=== PATIENT | female | born 1965 | race Caucasian/White ===

== ENCOUNTER → 2016-03-02 | Outpatient (CLI) | payer BC ==
[~2016-03-02] MED LIST: FERR1TAB23 PO; IBUP-103 PO; IRON PO; LEVO100T PO; LEVO88TA PO; MTR600X PO; OXYC-57 PO; SENNTAB23 PO
== END | disposition home or self-care (01) ==
LOC: C.PAPS 09:41
PROVIDERS: ATTEND Obstetrics & Gynecology
DX: Z01.419 Encounter for gynecological examination (general) (routine) without abnormal findings (principal)

== ENCOUNTER → 2016-03-02 | Outpatient (CLI) | payer BC | END | disposition home or self-care (01) | LOC: C.PATHSPEC 17:35 | PROVIDERS: ATTEND Obstetrics & Gynecology | DX: N94.6 Dysmenorrhea, unspecified (principal) ==

== ENCOUNTER → 2016-04-01 | Outpatient (CLI) | payer BC ==
[~2016-04-01] MED LIST changes: -IBUP-103 PO; -IRON PO; -LEVO88TA PO
[2016-04-01 16:37] LABS: BASO % 0.7 %; BASO ABS # 0.06 K/uL (0-0.2); COMPLETE YES; HEMATOCRIT 37.5 % (37-47); IG% 0.2 %; LYMPH % 26.3 %; LYMPH ABS # 2.11 K/uL (1.2-3.4); MEAN CORPUSCULAR HEMOGLOBIN 28.6 pg (25-34); MEAN CORPUSCULAR HGB CONC 33.6 g/dl (32-36); MONO % 7.9 %; NEUT % 60.9 %; PLATELET COUNT 279 K/uL (130-400); RED BLOOD COUNT 4.41 M/uL (4.2-5.4); WHITE BLOOD COUNT 8.01 K/uL (4.8-10.8)
[2016-04-01 17:13] LABS: BLOOD UREA NITROGEN 9 mg/dl (7-18); BUN/CREATININE RATIO 11.6 (10-20); CALCIUM 9.1 mg/dl (8.5-10.1); CARBON DIOXIDE 25 mmol/L (21-32); CHLORIDE 108 mmol/L (98-107); CREATININE 0.81 mg/dl (0.60-1.20); GLUCOSE 77 mg/dl (70-99); POTASSIUM 4.2 mmol/L (3.5-5.1); SODIUM 141 mmol/L (136-145)
== END | disposition home or self-care (01) ==
LOC: C.LAB 15:14
PROVIDERS: ATTEND Obstetrics & Gynecology
DX: Z01.818 Encounter for other preprocedural examination (principal)

== ENCOUNTER 2016-04-11 08:07 | Observation (INO) | payer BC ==
[2016-03-30 14:00] VITALS: BMI 28.0
[~2016-04-11] VITALS: Ht 154.9 cm; Wt 67.0 kg
[~2016-04-11 08:07] MED LIST changes: +CEFAZOLIN 2000 MG/60 ML D5W 50 ML IV SCH; +LACTATED RINGER'S 1000ML 1,000 ML IV SCH; -LEVO100T PO; -MTR600X PO; -OXYC-57 PO; -SENNTAB23 PO
[2016-04-11 08:38] VITALS: BP 139/80; PULSE 55; TEMP 37.1; O2SAT 99; Ht 154.9 cm; Wt 67.0 kg
--- NOTE | 2016-04-11 09:42 | History & Physical Bridge Note ---
H&P Re-Evaluation Bridge Note: I have examined the patient, reviewed the History & Physical and in the interval since the performance of the History & Physical I have noted the following changes of clinical significance: No changes noted
[2016-04-11] MEDS ORDERED: BUPIVACAINE 0.5 % 5 MG/1 ML MPF 30ML VIAL ONE (09:44)
[2016-04-11] MEDS ORDERED: METHYLENE BLUE 0.5% 10 ML VIAL ONE (09:44)
[2016-04-11] MEDS ORDERED: MIDAZOLAM HCL 1 MG/ML 2ML VIAL ONE (09:45)
[2016-04-11] MEDS ORDERED: FENTANYL CITRATE INJ 50 MCG/1 ML 2 ML VIAL ONE (09:45)
[2016-04-11] MEDS ORDERED: GLYCOPYRROLATE INJ 0.2 MG/ML VIAL ONE (11:07)
[2016-04-11] MEDS ORDERED: ROCURONIUM BROMIDE 10 MG/ML 5 ML VIAL ONE ×2 (11:07→11:34)
[2016-04-11] MEDS ORDERED: NEOSTIGMINE METHYLSULFATE 5 MG/5 ML SYR ONE (11:07)
[2016-04-11] MEDS ORDERED: KETOROLAC TROMETHAMINE 30 MG/ML VIAL ONE (11:07)
[2016-04-11] MEDS ORDERED: PROPOFOL IV EMULSION 10 MG/ML 20 ML VIAL IV ONE (11:07)
[2016-04-11] MEDS ORDERED: LIDOCAINE HCL 2% 2 ML VIAL (20MG/ML) ONE (11:07)
[2016-04-11] MEDS ORDERED: LARYING-O-JET KIT (LTA) EXT ONE ×2 (11:07)
[2016-04-11] MEDS ORDERED: DEXAMETHASONE SOD INJ 4 MG/ML VIAL ONE (11:07)
[2016-04-11] MEDS ORDERED: ONDANSETRON INJ 2 MG/ML 2 ML VIAL ONE (11:07)
[2016-04-11] MEDS ORDERED: TISSEEL FIBRIN SEALANT 4ML TOP ONE (12:03)
[2016-04-11] MEDS ORDERED: LACTATED RINGER'S 1000ML 1,000 ML IV SCH (12:11)
--- NOTE | 2016-04-11 12:14 | [facility] Post Operative Brief Note ---
Immediate Operative Summary Operative Date Apr 11, 2016. Pre-Operative Diagnosis Dysmenorrhea, Menorrhagia, and Anemia Post-Operative Diagnosis Same as preop Procedure(s) Performed Total Laparoscopic Hysterectomy Bilateral Salpingectomy Robot Assist , Cystoscopy Surgeon Dr. Yanes Area Field Person Surgeon(s) Dr. Bergeron Estimated Blood Loss 20 ml Findings adhesions Specimens A. Cervix, Uterus, and Bilateral Fallopian Tubes Drains Abdi Anesthesia General Complication(s) None Disposition Recovery Room / PACU
[2016-04-11] MEDS ORDERED: BISACODYL 10 MG SUPP PR PRN (12:15)
[2016-04-11] MEDS ORDERED: IBUPROFEN 600 MG TAB PO PRN (12:15)
[2016-04-11] MEDS ORDERED: OXYCODONE/ACETAMINOPHEN 5-325 TAB PO PRN ×2 (12:15)
[2016-04-11] MEDS ORDERED: ZOLPIDEM TARTRATE 5 MG TAB PO PRN (12:15)
[2016-04-11] MEDS ORDERED: MAGNESIUM HYDROXIDE SUSP 30 ML UDC PO PRN (12:15)
[2016-04-11] MEDS ORDERED: MEPERIDINE HCL 50 MG/ML CARP IV PRN (12:15)
[2016-04-11] MEDS ORDERED: ONDANSETRON INJ 2 MG/ML 2 ML VIAL IV PRN ×2 (12:15→13:30)
[2016-04-11] MEDS ORDERED: ACETAMINOPHEN 325 MG TAB PO PRN (12:15)
[2016-04-11] MEDS ORDERED: MEPERIDINE HCL 75 MG/ML CARP IV PRN (12:15)
[2016-04-11] MEDS ORDERED: KETOROLAC TROMETHAMINE 30 MG/ML VIAL IV. PRN (12:15)
[2016-04-11] MEDS ORDERED: PROMETHAZINE HCL INJ 25 MG in SODIUM CHLORIDE 0.9% 50ML 50 ML IV PRN (12:15)
[2016-04-11] MEDS ORDERED: PROMETHAZINE HCL INJ 12.5 MG in SODIUM CHLORIDE 0.9% 50ML 50 ML IV PRN (12:15)
[2016-04-11] MEDS ORDERED: SIMETHICONE 80 MG CHEW PO PRN (12:15)
--- NOTE | 2016-04-11 12:15 | Discharge Instructions ---
Discharge Instructions Admission Reason for Admission: Dysmenorrhea, Menorrhagia Discharge Discharge Diagnosis / Problem: menorrhagia Discharge Goals Goal(s): Routine recovery after surgery Activity Recommendations Activity Limitations: per Instructions/Follow-up section . Instructions / Follow-Up Instructions / Follow-Up POST OPERATIVE: BOWEL FUNCTION/MEDICATIONS: 1. Constipation pain and discomfort are the most common complaints 5-7 days after surgery. Points 2-6 address the things that can help. 2. Chewing gum can help stimulate the gut and help improve digestion and motility. 3. Milk of Magnesia 1-2 times per day until return of bowel function. 4. Colace is a stool softener that helps. Taking this 2-3 times per day until bowel function returns to normal is highly recommended. 5. Dulcolax is a laxative that may be used if several days have passed without a bowel movement. Alternatively Miralax may be used daily instead. 6. Drink plenty of fluids as this will also reduce constipation. 7. Narcotic pain medications will be prescribed by your physician. They are safe to use and we encourage you to use them. If you are not allergic, ibuprofen will also be prescribed. Many patients will be able to transition off of the narcotic medications to ibuprofen by postoperative day 3. ACTIVITY RECOMMENDATIONS: 1. Get plenty of rest and listen to your body. If you are tired, take a nap. 2. You may shower, but do not take a tub bath until you see your doctor at the 2 week post operative visit. 3. Absolutely NO intercourse and nothing in the vagina until you are examined by your doctor at the 6 week visit. At that visit it will be determined when such activities can be resumed. This can range from 6-12 weeks after your surgery depending on healing time. 4. The main physical activity in the first week should be walking. By the second week you can slowly increase activity. There are no limits on walking up and down stairs. 5. Do not lift more than 5-10 lbs for 4 weeks. Remember the "one-handed rule", i.e. if you can lift something with only one hand it's likely okay. 6. Minimize car icer like vacuuming and exercising for 4 weeks. "Overdoing it" can lead to incisions not healing, pain and vaginal bleeding , so again, listen to your body. 7. Driving can be resumed when you feel able. Do not drive within 24 hours of taking a narcotic medication. EXPECTATIONS: 1. Vaginal spotting, bleeding and discharge are common after surgery. There may even be an odor to the discharge which is often related to sutures used in the vagina. If you experience heavy vaginal bleeding, call the office number day or night [phone]. 2. Bladder discomfort is common after surgery from the catheter. This usually resolves in 1-2 weeks. 3. By the end of the 3rd or 4th week you should be feeling much better. It may take up to 6 weeks for your energy levels to return to normal. 4. Narcotic medications have side effects such as: dizziness, headache, nausea and/or vomiting. If you suspect your pain medication is causing problems, call our office and we may be able to prescribe an alternate medication. 5. The skin incisions are often covered with a liquid bandage. This will gradually peel off over time. CALL THE OFFICE IF YOU HAVE ANY OF THE FOLLOWIN. Temperature of 101 degrees or higher. 2. Severe abdominal or pelvic pain not relieved by pain medication. 3. Persistent nausea or vomiting. 4. Increased pain with urination or difficulty urinating. 5. Bright red bleeding that soaks more than 1 pad per hour. CONTACT PHONE NUMBERS: Main Office: [phone] Surgical Nurse: [phone] extension [phone] Avoid all tobacco products. If you need help to stop smoking, call [place]'s FREE QUITLINE at . This is a free call. Current Hospital Diet Patient's current hospital diet: Discharge Diet Recommended Diet: Regular Diet Procedures Procedures Performed: Total Laparoscopic Hysterectomy Bilateral Salpingectomy Robot Assist , Cystoscopy Pending Studies Studies pending at discharge: no Medical Emergencies . Who to Call and When: Medical Emergencies: If at any time you feel your situation is an emergency, please call 911 immediately. . Non-Emergent Contact Non-Emergency issues call your: Primary Care Provider . . "Provider Documentation" section prepared by Juan Yanes. VTE Core Measure Inpt VTE Proph given/why not?: Maye Martinez, SCD's
[2016-04-11] MEDS ORDERED: OXYC-57 PO (12:16)
[2016-04-11] MEDS ORDERED: MTR600X PO (12:16)
--- NOTE | 2016-04-11 12:59 | OPERATIVE REPORT ---
DATE OF OPERATION: 04/11/2016 PREOPERATIVE DIAGNOSIS: Dysmenorrhea, menorrhagia anemia. POSTOPERATIVE DIAGNOSIS: Same. PROCEDURE: Total laparoscopic hysterectomy, bilateral salpingectomy, lysis of adhesions. SURGEON: Dr. Yanes. WRAPPER AND PRESERVER: Dr. Bergeron. ESTIMATED BLOOD LOSS: 20 mL. FINDINGS: Adhesions of the anterior abdominal wall. SPECIMENS: Cervix, uterus, bilateral fallopian tubes. DRAINS: Abdi catheter. ANESTHETIC: General. COMPLICATIONS: None. DISPOSITION: Recovery room. Minnie was given a general anesthetic, prepped and draped in dorsal lithotomy position in [facility]. IV antibiotics given and time-out performed. Abdi catheter placed into her bladder and VCare sewn into her cervix in the usual fashion. Gloves changed and a supraumbilical incision made with scalpel. Using direct Ryan technique entry, we made entry into the peritoneal cavity without difficulty. Blunt-tipped Ryan trocar with balloon was then inflated and then CO2 gas to insufflate the abdomen. FINDINGS: Upper abdomen normal, no sign of visceral organ injury. Deep Trendelenburg position obtained. There was an anterior abdominal adhesion likely related to a prior section. This was omentum only. Otherwise adnexa appeared within normal limits, no obvious evidence of endometriosis and no other findings seen. Ureters followed a normal course. Two robotic ports, 1 on the left, 1 on the right placed under direct visualization, and a left upper quadrant 11 mm bladeless accessory port. Robot was then docked. Arm #1 was the monopolar sindhu, arm #2 was the bipolar [place]. Using the uterine manipulator, I identified the fallopian tubes. First these were removed through the accessory port after having had their blood supply removed and were cut with monopolar sindhu. I identified the ureter on both the left and right side and followed a normal course. I was able to coagulate beyond distal to the ovary, the uteroovarian vessels, and then cut these with monopolar sinduh, same process with the round ligament. We then skeletonized the uterine vessel on the left side and sharply dissected away the bladder flap without difficulty uterine artery and vein. Then identified these were well away from the left ureter, so these were then coagulated with bipolar [place] and cut with the monopolar sindhu. The exact same process was then followed on the right side. Once the bladder flap was fully sharply dissected away, we then made an anterior colpotomy with the monopolar sindhu. This was then continued to separate the cervix from the vagina staying medial to out uterine vessel ligations. At this stage, we then were able to pull the cervix and uterus into the vagina and then removed the specimen. A sponge in a glove was then placed in the vagina to maintain pneumoperitoneum. Instrument exchange jaspreet needle train driver for arm #1, bipolar was removed and a Cobra grasper place. We then used a 12 inch 2-0, 90-day V-Loc suture. This was passed through the accessory port. We closed the cuff, taking excellent, at least full 1 cm thickness bites of the vaginal mucosa going from left to right, back right to left. Suture was then cut so there was no tail and needle removed through the accessory port. The cuff seemed hemostatic after generous irrigation and suction, we then applied Tisseel 4 mL to the area for hemostasis. Robotic instruments removed, ports removed, gas allowed to escape. Incisions injected with 0.5% Marcaine. The fascia closed with 0 Vicryl in the umbilical port, several [id number] sutures and deep subcutaneous fat. Same process with the left upper quadrant incision, 4-0 subcuticular Monocryl closures on the incisions. Abdi catheter had been removed and cystoscopy performed. Good strong jets of blue urine coming through both left and right ureter openings. No sign of sutures in the bladder and no damage to the bladder. Cystoscope removed and a new Abdi catheter placed. The sponge had been removed already from the vagina. Sponge and instrument counts correct. The patient sent to recovery room in stable condition. I attest to the content of the Intraoperative Record and any orders documented therein. Any exceptio ns are noted below.
[2016-04-11] MEDS ORDERED: HYDROmorphone INJ 1 MG/ML SYR ONE (13:13)
[2016-04-11] MEDS ORDERED: HYDROmorphone INJ 2 MG/ML SYR/VIAL IV PRN (13:30)
[2016-04-11] MEDS ORDERED: PHENYLEPHRINE 100MCG/ML 5ML SYR IV PRN (13:30)
[2016-04-11] MEDS ORDERED: EpHEDrine SULFATE INJ 50 MG/ML AMP IV PRN (13:30)
[2016-04-11] MEDS ORDERED: ATROPINE SULFATE 0.1 MG/ML 5ML SYR IV PRN (13:30)
--- NOTE | 2016-04-11 13:33 | Anesthesiology Progress Note ---
Anesthesia Post Op Note Date & Time Apr 11, 2016 at 13:34 Vital Signs Pain Intensity: 6 Vital Signs Past 12 Hours Date Time Temp Pulse Resp B/P Pulse Ox O2 Delivery O2 Flow Rate FiO2 04/11/16 13:25 51 10 128/73 97 Room Air 04/11/16 13:15 47 10 135/75 98 Room Air 04/11/16 13:05 48 10 131/77 98 Room Air 04/11/16 12:55 53 16 133/78 100 Room Air 04/11/16 12:45 54 16 129/93 100 Mask 10 04/11/16 12:35 60 14 122/73 100 Mask 10 04/11/16 12:29 37.0 71 12 123/79 100 Mask 10 04/11/16 08:38 37.1 55 18 139/80 99 Room Air Notes Mental Status: alert / awake / arousable, participated in evaluation Pt Amnestic to Procedure: Yes Nausea / Vomiting: adequately controlled Pain: adequately controlled Airway Patency, RR, SpO2: stable & adequate BP & HR: stable & adequate Hydration State: stable & adequate Anesthetic Complications: no major complications apparent
[2016-04-11 13:55] VITALS: BP 134/77; PULSE 55; TEMP 36.7; O2SAT 96
[2016-04-11] MEDS ORDERED: IV FLUIDS COMPLETED PRN (14:00)
[2016-04-11 14:25] VITALS: BP 132/78; PULSE 53; TEMP 36.4; O2SAT 97
[2016-04-11 14:55] VITALS: BP 134/84; PULSE 55; TEMP 36.4; O2SAT 98
[2016-04-11 15:55] VITALS: BP 135/79; PULSE 63; TEMP 36.4; O2SAT 98
[2016-04-11] MEDS ORDERED: DOCUSATE SODIUM 100 MG CAP PO SCH (21:00)
--- NOTE | 2016-04-15 07:17 | DISCHARGE SUMMARY ---
Minnie had a total laparoscopic hysterectomy on 04/11/2016. She only spent a few hours in the hospital recovering. Her discharge is as follows: She soon after surgery began ambulating, voided well, had minimal bleeding and minimal pain. Pain was well controlled on oral pain medication. She had no extremity pain. PHYSICAL EXAM: Her vital signs were stable, she was afebrile. ASSESSMENT AND PLAN: Meets discharge criteria per nursing and was discharged home on the same day of surgery, 04/11/2016.
[2016-04-19] MEDS ORDERED: LEVO100T PO (14:00)
== END 2016-04-11 17:30 | disposition home or self-care (01) ==
LOC: ENRESERVTM → ENRESERVDT → C.ACU 08:07 → C.MS4N 12:13
PROVIDERS: ADMIT Obstetrics & Gynecology; ATTEND Obstetrics & Gynecology
DX: N94.6 Dysmenorrhea, unspecified (principal); N92.0 Excessive and frequent menstruation with regular cycle; D64.9 Anemia, unspecified; E03.9 Hypothyroidism, unspecified
CPT/HCPCS: 58571; S2900

== ENCOUNTER 2016-04-19 17:38 | Emergency (ER) | payer BC ==
[~2016-04-19] VITALS: Ht 160 cm; Wt 65.7 kg
[~2016-04-19 17:38] MED LIST changes: -CEFAZOLIN 2000 MG/60 ML D5W 50 ML IV SCH; -FERR1TAB23 PO; -LACTATED RINGER'S 1000ML 1,000 ML IV SCH; +LEVO100T PO; +MTR600X PO; +OXYC-57 PO
[2016-04-19 17:48] VITALS: TEMP 37; Ht 160 cm; Wt 65.7 kg
--- NOTE | 2016-04-19 19:42 | EMERGENCY ROOM VISIT NOTE ---
History Report prepared by Dyana: Rolando Lebron Under the Supervision of: Dr. Pal Cotto M.D. First contact with patient: 19:09 Chief Complaint: INFECTION Stated Complaint: HERNIA WHICH HAS CT SCAN SHOWING STRANGULATED FAT Nursing Triage Summary: pt reports hysterectomy on monday. Report hernia on c section scar. Pt reports after surgery was coughing. "I believe that opened the hernia to 3 inches. I'd been able to reduce it earlier, but I cannot now. It's sore". seen by PCP, arroyo CT and referred here. strangulated, possible infection History of Present Illness The patient is a 50 year old female who presents to the Emergency Room with complaints of intermittent abdominal pain beginning about 1 week ago. She had an abdominal CT recently at [facility] which showed an incarcerated hernia. She notes she had a hysterectomy and fallopian tube removal last week, and before then had a 2.5 inch hernia on her incision. She developed a cough last week after the surgery which aggravated the hernia. The patient notes she has had this hernia for 6 years and she has been able to reduce it on her own, but is unable to reduce it now. She has been able to move her bowels with the use of a stool softener. She notes having fevers off and on around 100 F, and pain with urination, and noticed redness on her abdomen 1 day ago, but denies having any nausea or vomiting. She has had left-sided back pain, but notes this may from sleeping on a sofa recently to prevent the coughing. The patient notes she is comfortable now and only rates her pain a 1/10 in severity. She last ate 2 hours ago. Source of History: patient Onset: about 1 week ago Position: abdomen Symptom Intensity: currently 1/10 Quality: other (abdominal pain) Timing: intermittent Modifying Factors (Worsening): other (coughing) Associated Symptoms: + back pain, + fevers, + urinary symptoms (pain with urination), No nausea, No vomiting Review of Systems See HPI for pertinent positives & negatives. A total of 10 systems reviewed and were otherwise negative. Past Medical & Surgical Medical Problems: (1) History of abdominal hernia (2) Menorrhagia Surgical Problems: (1) History of hysterectomy (2) Hx of bilateral salpingectomy Family History No pertinent family history stated. Social History Smoking Status: Never Smoker Current/Historical Medications Scheduled Levothyroxine Sodium (Synthroid), 100 MCG PO QAM Scheduled PRN Ibuprofen (Ibuprofen), 600 MG PO Q6H PRN for Pain,ARROYO,cramping,or fever Oxycodone/Acetaminophen 5MG/325MG (Percocet 5MG/325MG), 1 TAB PO Q4H PRN for Pain (pain scale 1-5) Sennosides-Docusate Sodium (Stool Softener), 1 TAB PO DAILY PRN for Constipation Allergies Coded Allergies: Adhesives (Unverified Allergy, Unknown, per patient questionnaire, 04/11/16 ) Peanut Oil (Unverified Allergy, Unknown, per PCP note , 04/11/16) Physical Exam Vital Signs Date Time Temp Pulse Resp B/P Pulse Ox O2 Delivery O2 Flow Rate FiO2 04/19/16 20:24 58 16 110/69 94 Room Air 04/19/16 19:31 66 16 134/83 96 Room Air 04/19/16 17:48 37.0 64 20 139/83 99 Room Air Physical Exam GENERAL: Patient is in no acute distress. HEENT: No acute trauma, normocephalic atraumatic, mucous membranes moist, no nasal congestion, no scleral icterus. NECK: No stridor, no adenopathy, no meningismus, trachea is midline. LUNGS: Clear to auscultation bilaterally, no wheeze, no rhonchi, breath sounds equal. HEART: Without murmurs gallops or rubs, regular rate and rhythm. ABDOMEN: 5 to 6 cm incarcerated hernia to the mid pelvis in area of C section scar. Some mild erythema over the lesion. The lesion is tender to the touch and , by my exam, non reducible. Bowel sounds are positive. No peritonitis. Surgical incisions are healing without infection. EXTREMITIES: No cyanosis or edema, full range of motion of all the joints without pain or difficulty, no signs for acute trauma. NEUROLOGIC: Oriented x 3, no acute motor or sensory deficits, no focal weakness. SKIN: No rash, no jaundice, no diaphoresis. Medical Decision & Procedures ER Provider Diagnostic Interpretation: [facility] Radiology Report: ABDOMINAL CT: IMPRESSION: 1. Incarcerated fatty hernia midline anterior pelvis with moderate diffuse fatty stranding and surrounding fluid measuring up to 2.6 x 5.6. If not already performed, surgical consultation recommended. 2. Posterior right subpleural 3.5 mm pulmonary nodule. Nodule follow-up recommended. Laboratory Results 04/19/16 19:25 Red Blood Count 4.39, Mean Corpuscular Volume 82.5, Mean Corpuscular Hemoglobin 28.5, Mean Corpuscular Hemoglobin Concent 34.5, Mean Platelet Volume 9.4, Neutrophils (%) (Auto) 53.5, Lymphocytes (%) (Auto) 25.1, Monocytes (%) (Auto) 16.1, Eosinophils (%) (Auto) 4.3, Basophils (%) (Auto) 0.8, Neutrophils # (Auto ) 3.52, Lymphocytes # (Auto) 1.65, Monocytes # (Auto) 1.06, Eosinophils # (Auto ) 0.28, Basophils # (Auto) 0.05 04/19/16 19:25 Test 04/19/16 19:03 04/19/16 19:25 Urine Color YELLOW Urine Appearance CLEAR (CLEAR) Urine pH 5.0 (4.5-7.5) Urine Specific [place] 1.021 (1.000-1.030) Urine Protein NEG (NEG) Urine Glucose (UA) NEG (NEG) Urine Ketones NEG (NEG) Urine Occult Blood TRACE (NEG) Urine Nitrite NEG (NEG) Urine Bilirubin NEG (NEG) Urine Urobilinogen NEG (NEG) Urine Leukocyte Esterase NEG (NEG) Urine WBC (Auto) 1-5 /hpf (0-5) Urine RBC (Auto) 0-4 /hpf (0-4) Urine Hyaline Casts (Auto) 0 /lpf (0-5) Urine Epithelial Cells (Auto) >30 /lpf (0-5) Urine Bacteria (Auto) NEG (NEG) White Blood Count 6.57 K/uL (4.8-10.8) Red Blood Count 4.39 M/uL (4.2-5.4) Hemoglobin 12.5 g/dL (12.0-16.0) Hematocrit 36.2 % (37-47) Mean Corpuscular Volume 82.5 fL (80-100) Mean Corpuscular Hemoglobin 28.5 pg (25-34) Mean Corpuscular Hemoglobin Concent 34.5 g/dl (32-36) Platelet Count 279 K/uL (130-400) Mean Platelet Volume 9.4 fL (7.4-10.4) Neutrophils (%) (Auto) 53.5 % Lymphocytes (%) (Auto) 25.1 % Monocytes (%) (Auto) 16.1 % Eosinophils (%) (Auto) 4.3 % Basophils (%) (Auto) 0.8 % Neutrophils # (Auto) 3.52 K/uL (1.4-6.5) Lymphocytes # (Auto) 1.65 K/uL (1.2-3.4) Monocytes # (Auto) 1.06 K/uL (0.11-0.59) Eosinophils # (Auto) 0.28 K/uL (0-0.5) Basophils # (Auto) 0.05 K/uL (0-0.2) RDW Standard Deviation 41.9 fL (36.4-46.3) RDW Coefficient of Variation 13.8 % (11.5-14.5) Immature Granulocyte % (Auto) 0.2 % Immature Granulocyte # (Auto) 0.01 K/uL (0.00-0.02) Prothrombin Time 10.1 SECONDS (9.0-12.0) Prothromb Time International Ratio 0.9 (0.9-1.1) Activated Partial Thromboplast Time 27.0 SECONDS (21.0-31.0) Partial Thromboplastin Ratio 1.0 Anion Gap 8.0 mmol/L (3-11) Est Creatinine Clear Calc Drug Dose 80.8 ml/min Estimated GFR () 107.0 Estimated GFR (Non- 92.3 BUN/Creatinine Ratio 12.8 (10-20) Calcium Level 8.6 mg/dl (8.5-10.1) Total Bilirubin 0.2 mg/dl (0.2-1) Aspartate Amino Transf (AST/SGOT) 9 U/L (15-37) Alanine Aminotransferase (ALT/SGPT) 24 U/L (12-78) Alkaline Phosphatase 59 U/L (45-117) Total Protein 7.3 gm/dl (6.4-8.2) Albumin 3.8 gm/dl (3.4-5.0) Globulin 3.5 gm/dl (2.5-4.0) Albumin/Globulin Ratio 1.1 (0.9-2) Laboratory results reviewed by me. ED Course 191: The patient was evaluated in room A10. A complete history and physical exam was performed. 1935: I spoke with Dr. Barkley who saw the patient at bedside. He notes she will have any appointment tomorrow. 2019: Reevaluated the patient. Discussed results and discharge instructions: She verbalized understanding and agreement. The patient is ready for discharge. Medical Decision Differentials include incarcerated bowel, incarcerate fat/hernia, bowel obstruction, cellulitis, UTI, anemia, and electrolyte imbalance. There is no leukocytosis or concerning anemia. No significant electrolyte abnormality, kidney failure or hepatitis. Urinalysis does not show evidence for infection. The patient was not toxic or febrile. I did review the results from the outpatient CT scan. She has an incarcerated 2.6 x 5.6 fatty hernia. No bowel seen in the hernia. I did attempt to reduce the hernia at bedside, I was unsuccessful. The patient did not require anything for pain during her ER stay. I spoke with the on-call surgeon. The patient was evaluated in the emergency room. The patient is being discharged with an appointment tomorrow with a specialist. No emergent surgery thought necessary. The patient was encouraged to return for fever, vomiting or worsening symptoms. Consults Time Called: 1929 Consulting Physician: Dr. Rubia Richey Returned Call: [address] Barkley who saw the patient at bedside. He notes she will have any appointment tomorrow. Impression Primary Impression: Incarcerated hernia Scribe Attestation The scribe's documentation has been prepared under my direction and personally reviewed by me in its entirety. I confirm that the note above accurately reflects all work, treatment, procedures, and medical decision making performed by me. Departure Information Dispostion Home / Self-Care Referrals Oliva Carson D.O. (PCP) Patient Instructions My [facility] Additional Instructions report for your appt tomorrow as scheduled tylenol for pain return for fever or uncontrolled pain lab testing today was all ok
[2016-04-19 19:44] LABS: BASO % 0.8 %; BASO ABS # 0.05 K/uL (0-0.2); COMPLETE YES; EOS % 4.3 %; HEMATOCRIT 36.2 % (37-47); IG% 0.2 %; LYMPH % 25.1 %; LYMPH ABS # 1.65 K/uL (1.2-3.4); MEAN CELL VOLUME 82.5 fL (80-100); MEAN CORPUSCULAR HEMOGLOBIN 28.5 pg (25-34); MEAN CORPUSCULAR HGB CONC 34.5 g/dl (32-36); MEAN PLATELET VOLUME 9.4 fL (7.4-10.4); MONO % 16.1 %; NEUT % 53.5 %; PLATELET COUNT 279 K/uL (130-400); RED BLOOD COUNT 4.39 M/uL (4.2-5.4); WHITE BLOOD COUNT 6.57 K/uL (4.8-10.8)
[2016-04-19 19:51] LABS: URINE APPEARANCE CLEAR (CLEAR); URINE BILIRUBIN NEG (NEG); URINE COLOR YELLOW; URINE EPITHELIAL CELL AUTO >30 /lpf (0-5); URINE NITRITE NEG (NEG); URINE SPECIFIC GRAVITY 1.021 (1.000-1.030); UROBILINOGEN NEG (NEG)
[2016-04-19 19:53] LABS: MANUAL MICROSCOPIC REQUIRED? NO; REVIEW REQ? NO
[2016-04-19 20:00] LABS: INR 0.9 (0.9-1.1); PROTHROMBIN TIME (PATIENT) 10.1 SECONDS (9.0-12.0)
[2016-04-19 20:07] LABS: BUN/CREATININE RATIO 12.8 (10-20); CALCIUM 8.6 mg/dl (8.5-10.1); CREATININE 0.75 mg/dl (0.60-1.20); POTASSIUM 4.2 mmol/L (3.5-5.1)
--- NOTE | 2016-04-19 20:09 | Progress Note ---
Progress Note Date of Service Apr 19, 2016. Progress Note Patient with incarcerated omentum in low midline incision Has been there for days with some mild pain Discussed with patient who wishes hernia center and plastics to evaluate for repair Arranged appointment for tomorrow in [place]
[2016-04-19 20:10] LABS: ALB/GLOB RATIO 1.1 (0.9-2)
[2016-04-19 20:24] VITALS: BP 110/69; PULSE 58; O2SAT 94
[2016-04-19] MEDS ORDERED: SENNTAB23 PO (20:26)
== END 2016-04-19 20:26 | disposition home or self-care (01) ==
LOC: C.EDB 17:40 → C.EDA 20:26
DX: K46.9 Unspecified abdominal hernia without obstruction or gangrene (principal); Z90.710 Acquired absence of both cervix and uterus